=== PATIENT | male | born 1995 | race Caucasian/White ===

== ENCOUNTER 2017-03-31 13:45 | Emergency (ER) | payer BC ==
[2017-03-31 13:50] VITALS: BP 113/80; PULSE 78; RESP 16; TEMP 99; O2SAT 95
--- NOTE | 2017-03-31 15:23 | EDPHY ---
General Narrative: CHIEF COMPLAINT: Ankle injury HISTORY OF PRESENT ILLNESS: Patient presents complaints of right ankle. He says that last night while he was intoxicated he rolled his right ankle awkwardly. He felt a sudden onset of pain in the distal fibula. He did not notice it last night but awoke this morning with severe pain on the right lateral ankle. No numbness or tingling. No pain in the right heel right midfoot. No pain in the right knee. Able to bear weight but with moderate pain. Improved at rest. No trauma or injury elsewhere that he knows of other than mild abrasion of the right elbow.No other associated complaints or modifying factors. ESTABLISHED ORTHOPEDIST: None REVIEW OF SYSTEMS: Ten systems reviewed and are negative unless otherwise noted in the HPI PAST MEDICAL HISTORY: None PAST SURGICAL HISTORY: None SOCIAL HISTORY: Nonsmoker. Lives and works here locally. FAMILY HISTORY: Noncontributory EXAMINATION General Appearance: Alert, no distress HEENT: Normocephalic and atraumatic. Pupils equal round reactive. Cardiovascular: Symmetric DP and PT pulses 2+.. Brisk cap refill Neurological: A&O, light sensation to the top of the foot is symmetric to both feet. Normal proprioception of the right great toe. No footdrop Skin: Warm and dry, no rash. No petechiae or purpura. No laceration or puncture. Superficial abrasion to the right posterior elbow. Extremities: Tenderness of the right lateral malleolus. No tenderness of the right midfoot right calcaneus with firm palpation. No tenderness of the proximal fibula. Range of motion of the ankles and knees are symmetric. There is no tenderness of the right elbow over the abrasion. Psychiatric: Mood and affect normal DIFFERENTIAL DIAGNOSES: Including but not limited to sprain, strain, fracture, dislocation fracture dislocation MDM: 3:00 p.m. Ankle injury with fracture of the distal fibula that is closed. I do not appreciate any tibia fracture. Pending radiology interpretation at this time. Neurovascular intact. 3:20 p.m. X-ray has been read by radiologist as acute, minimally displaced fibular fracture. He has no pain in the proximal fibula. He is neurovascular intact distally. He is currently being placed in a John [place] boot and provided crutches. We discussed nonweightbearing until seen by Orthopedics for definitive care. We discussed ED precautions. We discussed ice, elevation anti-inflammatories. I have answered all his questions and the questions of his mother bedside. He is in no acute distress and stable for discharge home. SUPERVISION: This patient was independently evaluated without direct involvement of or examination by the attending physician. ED Precautions: Worsening pain. Erythema, edema, cyanosis, pallor, paresthesia or anesthesia. - Diagnostics Imaging Results: Imaging Impressions Ankle X-Ray 03/31/17 13:52 Impression: Acute minimally displaced distal fibular fracture. - History Smoking Status: Never smoked - Objective Vital Signs: Initial Vital Signs Temperature (C) 99.0 F 03/31/17 13:48 Heart Rate 78 03/31/17 13:48 Respiratory Rate 16 03/31/17 13:48 Blood Pressure 113/80 03/31/17 13:48 O2 Sat (%) 95 03/31/17 13:48 O2 Delivery Mode Room Air Allergies/Adverse Reactions: No Known Allergies Allergy (Unverified 05/10/14 20:11) Home Medications: Medication Instructions Recorded Lexapro 20 mg 03/31/17 oxyCODONE HCL/ACETAMINOPHEN 1 each PO Q4-6PRN PRN #11 tablet 03/31/17 [Percocet 5-325 mg Tablet] Departure - Departure Disposition: Home, Routine, Self-Care Clinical Impression: Closed right fibular fracture Qualifiers: Encounter type: initial encounter Fibula location: distal Fracture morphology: other fracture Qualified Code(s): S82.831A - Other fracture of upper and lower end of right fibula, initial encounter for closed fracture Condition: Good Instructions: Ankle Fracture (ED) Additional Instructions: 1. Ice and elevation as discussed as needed 2. [id number] anti-inflammatories as discussed as needed 3. Contact the on-call orthopedist for definitive care 4. ED precautions as discussed Referrals: Ignacio Oconnor MD [Medical Doctor] - As per Instructions Prescriptions: oxyCODONE HCL/ACETAMINOPHEN [Percocet 5-325 mg Tablet] 1 each PO Q4-6PRN PRN # 11 tablet PRN Reason: Pain, Breakthrough
== END 2017-03-31 15:34 | disposition home or self-care (01) ==
DX: S82.831A Other fracture of upper and lower end of right fibula, initial encounter for closed fracture (principal); X58.XXXA Exposure to other specified factors, initial encounter
CPT/HCPCS: L4386